=== PATIENT | female | born 1960 | race Caucasian/White ===

== ENCOUNTER → 2016-08-21 | Outpatient (CLI) | payer OTHER ==
[~2016-08-21] MED LIST: TRAM50TA2 PO
--- OUTSIDE RECORDS SUMMARY | 2016-08-21 09:32 | XMS REPORT | Clinical Summary ---
Author Author User, [employer] Organization Formerly [facility] [place] Address Unknown Phone Unavailable Allergies, Adverse Reactions, Alerts Allergy Name Reaction Description Start Date Severity Status Provider SULFA Critical Active Kiarra Chinchilla Conditions or Problems Problem Name Problem Code Onset Date Status Entry Date Provider Comment Standard Description Annotate FEVER 780.6 Resolved Kiarra Chinchilla Fever and other physiologic disturbances of temperature regulation TACHYCARDIA 785.0 Resolved Kiarra Chinchilla Tachycardia, unspecified MUSCLE PAIN 729.1 Resolved Kiarra Chinchilla Myalgia and myositis, unspecified COUGH 786.2 Resolved Kiarra Chinchilla Cough ADENOCARCINOMA, COLON, FAMILY HX V16.0 Active Kiarra Chinchilla Family history of malignant neoplasm of gastrointestinal tract ELEVATED BLOOD PRESSURE WITHOUT DIAGNOSIS OF HYPERTENSION 796.2 Resolved Kiarra Chinchilla Elevated blood pressure reading without diagnosis of hypertension IRRITABLE BOWEL SYNDROME 564.1 Active Kiarra Chinchilla Irritable bowel syndrome FOOT PAIN, RIGHT 729.5 Resolved Kiarra Chinchilla Pain in limb WELL WOMAN V70.0 Resolved Kiarra Chinchilla Routine general medical examination at a health care facility HYPERCHOLESTEROLEMIA 272.0 Active Kiarra Chinchilla Pure hypercholesterolemia INSOMNIA 780.52 Resolved Kiarra Chinchilla Insomnia, unspecified LIVER FUNCTION TESTS, ABNORMAL 794.8 Resolved Kiarra Chinchilla Nonspecific abnormal results of function study of liver BACK PAIN 724.5 Resolved Kiarra Chinchilla Backache, unspecified LABYRINTHITIS NOS 386.30 Resolved Kiarra Chinchilla Labyrinthitis, unspecified CHEST PAIN, ATYPICAL 786.59 Resolved Kiarra Chinchilla Other chest pain FEVER 780.6 Resolved Kiarra Chinchilla Fever and other physiologic disturbances of temperature regulation CLOSTRIDIUM DIFFICILE COLITIS 008.45 Resolved Kiarra Chinchilla Intestinal infection due to clostridium difficile FOOT PAIN, RIGHT 729.5 Resolved Kiarra Chinchilla Pain in limb MENOPAUSAL SYNDROME 627.0 Resolved Kiarra Chinchilla Premenopausal menorrhagia ARM PAIN, LEFT 729.5 Resolved Kiarra Chinchilla Pain in limb SEBORRHEIC KERATOSIS 702.19 Resolved Kiarra Chinchilla Other seborrheic keratosis DEHYDRATION 276.51 Resolved Kiarra Chinchilla Dehydration MENOPAUSAL SYNDROME 627.0 Active Kiarra Chinchilla Premenopausal menorrhagia SCIATICA/HERNIATED DISC 722.10 Resolved Kiarra Chinchilla Displacement of lumbar intervertebral disc without myelopathy CELLULITIS 682.9 Resolved Kiarra Chinchilla Cellulitis and abscess of unspecified sites ACUTE SPHENOIDAL SINUSITIS 461.3 Resolved Kiarra Chinchilla Acute sphenoidal sinusitis FATIGUE 780.79 Resolved Kiarra Chinchilla Other malaise and fatigue HIDRADENITIS SUPPURATIVA 705.83 Active Kiarra Chinchilla Hidradenitis BRONCHITIS 490 Inactive Kiarra Chinchilla Bronchitis, not specified as acute or chronic HEALTH SCREENING V70.0 Resolved Kiarra Chinchilla Routine general medical examination at a health care facility ANKLE SPRAIN 845.00 Resolved Kiarra Chinchilla Unspecified site of ankle sprain 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 Kiarra Chinchilla Injury to peroneal nerve KERATOSIS, SEBORRHEIC, INFLAMED 702.11 Active Kiarra Chinchilla Inflamed seborrheic keratosis Medication List Medication Instructions Start Date Stop Date Generic Name NDC Status Provider Patient Instruction NAPROXEN 500 MG TAB 1 PO BID NAPROXEN 79486637683 Active Lenora Adam NAPROXEN 500 MG TAB 1 PO BID NAPROXEN 37301873293 No Longer Active Kiarra Chinchilla LYRICA 25 MG CAPS 1 PO BID PREGABALIN 57157853840 No Longer Active Kiarra Chinchilla ALPRAZOLAM 1 MG TAB 1/2 PO QHS ALPRAZOLAM 07991354847 Active Kiarra Chinchilla LINZESS 145 MCG CAPS 1 PO daily LINACLOTIDE 06690940413 Active Kiarra Chinchilla CLINDAGEL 1 % GEL apply to affected areas BID CLINDAMYCIN PHOSPHATE 72589526326 No Longer Active Kiarra Chinchilla SPIRONOLACTONE 25 MG TAB 2 PO BID SPIRONOLACTONE 63621289591 No Longer Active Kiarra Chinchilla LORTAB 5 5-500 MG TABS 1 to 2 PO Q6hrs prn ACETAMINOPHEN-HYDROCODONE 46856975167 No Longer Active Kiarra Chinchilla CELEXA 20 MG TABS 1 PO daily CITALOPRAM HYDROBROMIDE 35592480783 No Longer Active Kiarra Aurelia Chinchilla ALPRAZOLAM 1 MG TAB 1/2 to 1 po qhs prn ALPRAZOLAM 28800895484 No Longer Active Kiarra Aurelia Chinchilla AMITIZA 24 MCG CAPS 1 PO BID LUBIPROSTONE 93388685742 No Longer Active Kiarra Aurelia Chinchilla BENTYL 20 MG TABS 1 po QID prn stomach cramps DICYCLOMINE HCL 04508283097 Active Gissell Mcqueeng ROBITUSSIN A-C 10-100 MG/5ML SYRUP 1 teaspoon PO Q 4-6 hr prn ROBITUSSIN A-C 10-100 MG/5ML SYRUP No Longer Active Kiarra Aurelia Chinchilla PROAIR HFA 108 (90 BASE) MCG/ACT AERS 2 puff Q4 hrs prn wheezing ALBUTEROL SULFATE 29796899273 No Longer Active Kiarra Aurelia Chinchilla ADVAIR DISKUS 100-50 MCG/DOSE MISC 1 puff BID FLUTICASONE-SALMETEROL 52278931276 No Longer Active Kiarrajay Chinchilla PREDNISONE 20 MG TAB 1 PO daily for 7 days PREDNISONE 43397474644 No Longer Active Kiarrajay Chinchilla BIAXIN 500 MG TAB 1 PO BID CLARITHROMYCIN 17287984951 No Longer Active Kiarra Aurelia Chinchilla SUDAFED 30 MG TAB 1 PO TID prn PSEUDOEPHEDRINE HCL 65420036180 No Longer Active Kiarra Aurelia Chinchilla AUGMENTIN 500-125 MG TAB 1 PO BID AMOXICILLIN-POT CLAVULANATE 29347634675 No Longer Active Kiarra Aurelia Chinchilla PREDNISONE 20 MG TAB 2 pills at once for 2 days then 1 pill daily for 2 days PREDNISONE 77313404784 No Longer Active Kiarra Aurelia SMALLS'S NASAL SPRAY (DEXAMETHASONE, GENTAMICIN, SALINE) 2 puffs each nostril TID for [address] GALINDO NASAL SPRAY ( DEXAMETHASONE, GENTAMICIN, SALINE) No Longer Active Kiarra Chinchilla KEFLEX 500 MG CAP 1 PO TID for 7 days CEPHALEXIN 58798731332 No Longer Active Kiarra Aurelia Chinchilla IBUPROFEN 600 MG TAB 1 PO TID for 7 days IBUPROFEN 02660181752 No Longer Active Kiarra Aurelia Chinchilla KEFLEX 500 MG CAP 1 PO TID for 7 days CEPHALEXIN 79835517813 No Longer Active Kiarra Chinchilla KEFLEX 500 MG CAP 1 PO TID for 7 days CEPHALEXIN 09015247997 No Longer Active Kiarra SMALLS'Carisa NASAL SPRAY (DEXAMETHASONE, GENTAMICIN, SALINE) 2 puffs each nostril TID for [address] GALINDO NASAL SPRAY ( DEXAMETHASONE, GENTAMICIN, SALINE) No Longer Active Kiarra Chinchilla AUGMENTIN 500-125 MG TAB 1 PO BID AMOXICILLIN-POT CLAVULANATE 15702386184 No Longer Active Kiarrajay Chinchilla KEFLEX 500 MG CAP 1 PO TID for 7 days CEPHALEXIN 81918585958 No Longer Active Kiarra Chinchilla AMBIEN 10 MG TAB 1 prn ZOLPIDEM TARTRATE 78878987656 No Longer Active Lenora Adam LORTAB 5 5-500 MG TABS 1 to 2 PO Q6hrs prn ACETAMINOPHEN-HYDROCODONE 77454402380 No Longer Active Kiarrajay Chinchilla MOBIC 7.5 MG TABS 1 PO BID for 2 weeks MELOXICAM 81099140286 No Longer Active Kiarra Chinchilla ALPRAZOLAM 1 MG TABS 1/2 po HS prn ALPRAZOLAM 85926243860 No Longer Active Kiarra Aurelia Chinchilla AMBIEN 10 MG TAB 1 po prn ZOLPIDEM TARTRATE 79764258727 No Longer Active Kiarra Aurelia Chinchilla DOXEPIN HCL 10 MG CAPS 1 PO BID prn DOXEPIN HCL 35653867435 No Longer Active Kiarra Aurelia Chinchilla ZELNORM 6 MG TABS 1 PO Q12hrs prn TEGASEROD MALEATE 21094570377 No Longer Active Kiarra Aurelia Chinchilla AUGMENTIN 500-125 MG TABS 1 PO BID AMOXICILLIN-POT CLAVULANATE 85950056623 No Longer Active Kiarra Aurelia Chinchilla FLAGYL 500 MG TAB 1 PO TID for 10 days METRONIDAZOLE 93311107317 No Longer Active Kiarra Aurelia Chinchilla QUESTRAN PACK 1 packet in 1/2 OJ TID x 10 days CHOLESTYRAMINE PACK 03561450661 No Longer Active Kiarra Aurelia Chinchilla AMBIEN 10 MG TAB 1 po prn ZOLPIDEM TARTRATE 77339993994 No Longer Active Kiarra Aurelia Chinchilla PREDNISONE 20 MG TAB 2 daily for 3 days PREDNISONE 01272954253 No Longer Active Kiarra Aurelia Chinchilla ROBITUSSIN A-C 10-100 MG/5ML SYRUP 5cc PO Q 4-6 hr prn ROBITUSSIN A-C 10-100 MG/5ML SYRUP 08112369322 No Longer Active Kiarra Aurelia Chinchilla AUGMENTIN 500-125 MG TAB 1 PO BID AMOXICILLIN-POT CLAVULANATE 16011387647 No Longer Active Kiarra Aureila Chinchilla Vital Signs Date Name Value Unit Range Description blood pressure, diastolic - 8462-4 80 mm[Hg] BP qureshi blood pressure, systolic - 8480-6 140 mm[Hg] BP sys pulse rate E&M - 8867-4 84 /min Heart rate respiratory rate E&M - 9279-1 14 /min Resp rate blood pressure, diastolic - 8462-4 90 mm[Hg] BP qureshi blood pressure, systolic - 8480-6 122 mm[Hg] BP sys pulse rate E&M - 8867-4 85 /min Heart rate respiratory rate E&M - 9279-1 14 /min Resp rate weight E&M - 3141-9 215 [lb_av] Weight Measured blood pressure, diastolic - 8462-4 90 mm[Hg] BP qureshi blood pressure, systolic - 8480-6 128 mm[Hg] BP sys pulse rate E&M - 8867-4 80 /min Heart rate respiratory rate E&M - 9279-1 14 /min Resp rate temperature E&M 97.3 [degF] Body temperature weight E&M - 3141-9 215 [lb_av] Weight Measured blood pressure, diastolic - 8462-4 84 mm[Hg] BP qureshi blood pressure, systolic - 8480-6 130 mm[Hg] BP sys pulse rate E&M - 8867-4 80 /min Heart rate respiratory rate E&M - 9279-1 14 /min Resp rate temperature E&M 97.7 [degF] Body temperature weight E&M - 3141-9 205 [lb_av] Weight Measured blood pressure, diastolic - 8462-4 88 mm[Hg] BP qureshi blood pressure, systolic - 8480-6 130 mm[Hg] BP sys pulse rate E&M - 8867-4 84 /min Heart rate respiratory rate E&M - 9279-1 14 /min Resp rate weight E&M - 3141-9 205 [lb_av] Weight Measured Encounters Code Encounter Date Provider Facility CPT-12016 Ofc Vst, Est Level IV 17:28:16 [employer] Kiarra Aureliaantwan Chinchilla, DO, FACP CPT-29674 Ofc Vst, Est Level III 16:40:49 CDT Kiarra Aurelia Chinchilla DO, FACP CPT-07215 Ofc Vst, Est Level III 16:29:23 CDT Kiarra Aurelia [facility] CPT-00829 Ofc Vst, Est Level III 16:46:19 CDT Kiarra Aureliaantwan Chinchilla DO, FACP CPT-96512 Ofc Vst, Est Level III 15:07:43 CDT Kiarrajay Chinchilla, DO, FACP CPT-71869 Ofc Vst, Est Level III 13:39:54 CDT Kiarra Aurelia Amor Chinchilla DO, FACP CPT-31495 Ofc Vst, Est Level III 09:58:01 CDT Kiarra Aureliaantwan Chinchilla [facility] CPT-76395 Ofc Vst, Est Level III 13:31:56 CDT Kiarrajay Chinchilla, DO, FACP CPT-73806 Ofc Vst, Est Level IV 13:56:54 [employer] Kiarrajay Chinchilla, DO, FACP CPT-96057 Ofc Vst, Est Level III 14:36:46 CDT Kiarrajay Chinchilla, DO, FACP CPT-78376 Ofc Vst, Est Level IV 15:30:48 CDT Kiarrajay Chinchilla, DO, FACP CPT-00197 Ofc Vst, Est Level III 10:53:33 CDT Kiarrajay Chinchilla, DO, FACP CPT-67676 Ofc Vst, Est Level IV 16:16:00 CDT Kiarrajay Chinchilla [facility] CPT-43898 Ofc Vst, Est Level III 14:08:33 CDT Kiarra Aurelia Younger mAor, DO, FACP CPT-69055 Ofc Vst, Est Level III 09:51:56 [employer] Kiarrajay Guerreroi Carisa Amor, DO, FACP CPT-00250 Ofc Vst, Est Level IV 11:36:05 [employer] Kiarrajay Younger Amor, DO, FACP CPT-50973 Ofc Vst, Est Level III 11:13:16 CDT Kiarrajay Guerreroi Carisa Amor, DO, FACP CPT-41379 Ofc Vst, Est Level III 16:41:47 [employer] Kiarra Aurelia Peresner Kiarra Carisa Amor, DO, FACP CPT-99825 Ofc Vst, Est Level IV 14:44:53 CDT Kiarra Aurelia Younger Amor, DO, FACP CPT-76000 Ofc Vst, Est Level III 10:14:38 CDT Kiarra Aurelia Guerrerojay Chinchilla, DO, FACP CPT-60481 Ofc Vst, Est Level III 15:52:07 CDT Kiarrajay Peresmanuel Chinchilla, DO, FACP CPT-52720 Ofc Vst, Est Level IV 15:39:54 CDT Kiarrajay Chinchilla [facility] [place] CPT-46207 Ofc Vst, Est Level III 16:06:34 [employer] Kiarra Chinchilla [facility] [place] CPT-64017 Ofc Vst, Est Level III 10:10:31 CDT Kiarra Chinchilla [facility] [place] CPT-40615 Ofc Vst, New Level III 13:16:04 [employer] Kiarra Chinchilla [facility] [place] Procedures Code Procedure Name Date Entry Date Standard Description CPT-37132 Preventive, Est, (40-64) 16:50:36 CDT CPT-08718 Preventive, Est, (40-64) 14:40:56 CDT CPT-26353 Excision of Benign Lesion 2.1-3.0 cm 19:02:14 CDT 12/02 CPT-92931 EKG w/ Interpretation 14:44:53 CDT
--- NOTE | 2016-08-21 10:05 | Diagnostic Imaging Report ---
Clinical indication: Patient with acute right distal deep peripheral motor neuropathy. Patient complains of pain in the right lateral malleolus with numbness, burning, and tingling sensation radiating to plantar surface of the right foot. Exam: X-ray of the right ankle, AP and lateral views. Comparison: X-ray of the right ankle dated 12/31/2013. Findings: There is no acute fracture or dislocation. Stable small chronic calcification seen distal to the lateral malleolus. Stable spurring of the inferior aspect of the medial malleolus. There is stable hypertrophic spurring of the dorsal midfoot. There is stable hypertrophic calcaneal spurring at the plantar and Achilles attachments. The ankle mortise and syndesmotic joints are unremarkable. Impression: 1: Stable x-ray of the right ankle with no interval acute fracture or dislocation. 2: Degenerative disease of the right ankle and foot. Dictated by: Dictated on workstation # [id number]
== END ==
LOC: RAD 09:27
PROVIDERS: ATTEND Neuromusculoskeletal Medicine, Sports Medicine
DX: Z02.71 Encounter for disability determination (principal)
CPT/HCPCS: 73600

== ENCOUNTER → 2018-07-03 | Outpatient (CLI) | payer MEDICARE, OTHER ==
--- NOTE | 2018-07-03 14:21 | Diagnostic Imaging Report ---
PROCEDURE: CT head without contrast. TECHNIQUE: Multiple contiguous axial images were obtained through the brain without the use of intravenous contrast. INDICATION: Right mastoid pressure and headache. COMPARISON: No prior studies are available for comparison. FINDINGS: The ventricles and sulci are within normal limits. No sulcal effacement, midline shift or hemorrhage is detected. Cisterns are patent. Mastoid air cells as well as the visualized paranasal sinuses are clear. IMPRESSION: No acute intracranial process is detected. Dictated by: Dictated on workstation # [id number]
== END ==
LOC: RAD 13:39
PROVIDERS: ATTEND Family Medicine
DX: J32.9 Chronic sinusitis, unspecified (principal); R51 Headache
CPT/HCPCS: 70450

== ENCOUNTER → 2021-08-28 | Outpatient (CLI) | payer MEDICARE | LOC: CARD 12:00 | PROVIDERS: ATTEND Family Medicine | DX: I44.7 Left bundle-branch block, unspecified (principal); I49.9 Cardiac arrhythmia, unspecified | CPT/HCPCS: 93005 ==

== ENCOUNTER → 2021-09-28 | Outpatient (CLI) | payer MEDICARE ==
[~2021-09-28] MED LIST changes: +CATHETER FLUSH 10 ML SYR IVP PRN; +REGADENOSON 0.4 MG/5 ML SYR (LEXISCAN) IV ONE
[2021-09-28 12:26] VITALS: BP 170/88
--- NOTE | 2021-09-29 08:21 | NUCLEAR STRESS TEST ---
REGADENOSON NUCLEAR STRESS Date of procedure: 09/28/2021. Primary care provider: Praveen Justin MD Admitting physician: Felix Cooper Jr., MD. INDICATION: Left bundle branch block. BASELINE ELECTROCARDIOGRAM: Sinus rhythm with left bundle branch block. STRESS TEST PROCEDURE: The patient was administered 0.4 mg of intravenous Regadenoson. The resting heart rate was 71 bpm and the peak heart rate was 113 bpm. The resting blood pressure was 170/88 mmHg and the minimum blood pressure was 170/88 mmHg. This represents a normal heart rate and a blunted blood pressure response to Regadenoson with resting hypertension. The test was stopped due to the protocol. There was no chest discomfort during the test. There were no arrhythmias during the test. The stress electrocardiogram was indeterminate due to the left bundle branch block. NUCLEAR PROCEDURE: The patient was administered 10.6 mCi of intravenous technetium 99m Tetrofosmin at rest for the rest images. The patient was subsequ ently administered 31.6 mCi of intravenous technetium 99m Tetrofosmin at peak stress for the stress images. Following an appropriate wait after each injection, imaging was obtained. The images were subsequently processed and reformatted in the usual views. Gated imaging was obtained. The image quality was adequate with a mild degree of gastrointestinal and breast attenuation ar tifact. CT attenuation correction was used as a adjunct to standard imaging. Both the corrected and uncorrected images were reviewed for interpretation. NUCLEAR RESULTS: There was a large, moderate intensity, reversible mid to distal anterior and apical defect with a large amount of inducible ischemia with a summed stress score of 22 and a summed difference score of 21. There was normal left ventricular chamber size with an end-diastolic volume of 77 mL and an end- systolic volume of 34 mL. There was no evidence of transient ischemic dilatation. The TID ratio was 1.24. There was normal wall motion in all segments with a calculated ejection fraction of 56%. IMPRESSION: 1. Normal heart rate and a blunted blood pressure response to regadenoson with resting hypertension. 2. There was no chest discomfort or arrhythmias during the test. 3. The stress electrocardiogram was indeterminate due to the left bundle branch block. 4. There was a large, moderate intensity, reversible mid to distal anterior and apical defect with a large amount of inducible ischemia with a summed stress score of 22 and a summed difference score of 21. 5. There was normal wall motion in all segments with a calculated ejection fraction of 56%. 6. This is an abnormal result representing an overall high risk for possible future coronary ischemic events. Certain portions of this document may have been dictated utilizing voice recognition technology. Inherent to this technology, typographical and grammatical errors may exist. As much as I am diligent to identify and correct these mistakes, some errors may remain in the document. FELIX COOPER JR, MD Sep 29, 2021 08:21
== END ==
LOC: CARD 10:38
PROVIDERS: ATTEND Internal Medicine Cardiovascular Disease
DX: I44.7 Left bundle-branch block, unspecified (principal); I51.9 Heart disease, unspecified
CPT/HCPCS: 78452; 93017; 93306; A9502

== ENCOUNTER 2021-10-19 09:00 | Day surgery (SDC) | payer MEDICARE ==
[~2021-10-19] VITALS: Ht 170.2 cm; Wt 99.3 kg
[2021-10-19] VITALS (11 sets, daily range): BP systolic 103–130; BP diastolic 58–86
[~2021-10-19 09:00] MED LIST changes: +ALPR1TAB7 PO; +ASPI-1238 PO; +ASPIRIN 81 MG CHEW (CHILDREN'S ASA) ONE; +ASPIRIN 81 MG CHEW (CHILDREN'S ASA) PO ONE; +CATHETER FLUSH 10 ML SYR IV PRN; -CATHETER FLUSH 10 ML SYR IVP PRN; +FLUT9.9S NS; +HEParin (CATH LAB) 2,000 ML IV ONE; +HEParin 1000 UNIT/ML (10ML VIAL) FOR BOLUS ONE; +LIDOCAINE 1% INJ 50 ML (XYLOCAINE) VIAL ONE; +LINA72CA PO; +METO50TA7 PO; +MIDAZOLAM 5 MG/5 ML (VERSED) VIAL ONE; +NAPR-1071 PO; +NITRO DRIP 25000 MCG/D5W 250 ML IV ONE; +NS IV 1000 ML 1,000 ML IV ONE; +NS IV 1000 ML 1,000 ML ONE; -REGADENOSON 0.4 MG/5 ML SYR (LEXISCAN) IV ONE; +TIZA4CAP8 PO; +VERAPAMIL 5 MG/2 ML (CALAN) VIAL IV ONE; +fentaNYL INJ 100 MCG/2 ML AMP ONE
--- NOTE | 2021-10-19 09:00 | Pre-Op Note & Conscious Sedat ---
Pre-Operative Progress Note H&P Reviewed The H&P was reviewed, patient examined and no changes noted. Date H&P Reviewed: Oct 19, 2021 Time H&P Reviewed: 09:00 Pre-Op Diagnosis: Chest pain and abnormal stress test Conscious Sedation Pre-Proced ASA Score 2 For ASA 3 and 4: Consider anesthesia and medical clearance. Also, for patients with a history of failed moderate sedation consider anesthesia. Airway Lungs Heart ASA score ASA 1: a normal healthy patient ASA 2: a patient with a mild systemic disease (mid diabetes, controlled hypertension, obesity ASA 3: a patient with a severe systemic disease that limits activity (angina, COPD, prior Myocardial infarction) ASA 4: a patient with an incapacitating disease that is a constant threat to life (CHF, renal failure) ASA 5: a moribund patient not expected to survive 24 hrs. (ruptured aneurysm) ASA 6: a declared brain- patient whose organs are being harvested. For emergent operations, add the letter E after the classification Mallampati Classification Grade 2 Sedation Plan Analgesia, Amnesia, Plan communicated to team members, Discussed options with patient/fam, Discussed risks with patient/fam The patient is an appropriate candidate to undergo the planned procedure, sedation, and anesthesia. The patient immediately re-assessed prior to indication. THAD PEREIRA JR, MD Oct 19, 2021 09:00
--- NOTE | 2021-10-19 10:16 | Cardiac Cath Report ---
CARDIAC CATHETERIZATION DATE OF PROCEDURE: 10/19/2021 INDICATION: Chest pain and abnormal nuclear stress test. HISTORY: The patient is a 61 year old female with no previously known history of coronary artery disease who is recently found to have a left bundle branch block. She was also having some intermittent chest discomfort with and without exertion. I had her undergo a nuclear stress test on 09/28/2021 that showed a large, reversible mid to distal anterior and apical defect with a large amount of inducible ischemia. She was started on beta-manolo and her symptoms have started to improve. However, in light of the severely abnormal stress test, she is now referred for further evaluation with a cardiac catheterization. PROCEDURES PERFORMED: 1. Left heart catheterization with hemodynamic measurements. 2. Diagnostic [place] coronary angiography. PROCEDURE DESCRIPTION: After informed consent and in the fasting state, left heart catheterization was performed through the right radial artery utilizing a 6 Welsh system by percutaneous approach. Standard 5 Welsh Salma catheters were utilized for the diagnostic portion of the procedure. All catheters were exchanged over a guidewire. Following the procedure, a vascular band was applied to the radial artery access site and the sheath was removed with good hemostasis. RESULTS: HEMODYNAMICS: Aortic pressure was 95/57 mmHg. The left ventricular pressure was 100/0 mmHg with a left ventricular end-diastolic pressure of 4 mmHg. There was no significant pressure gradient upon pullback across the aortic valve. CORONARY ANGIOGRAPHY: Left main coronary artery: Free of significant disease. Left anterior descending coronary artery: Free of significant disease. Left circumflex coronary artery: Codominant and free of significant disease. Right coronary artery: Codominant and free of significant disease. There was some catheter induced spasm in the proximal vessel which resolved with intracoronary nitroglycerin. IMPRESSION: 1. Normal left heart pressures. 2. Angiographically normal-appearing coronary arteries in a codominant system. However, there was some catheter induced spasm in the proximal right coronary artery that resolved with intracoronary nitroglycerin. 3. The patient is known to have normal left ventricular systolic function with a calculated ejection fraction of 56% by nuclear stress test performed on 10/29/2021. 4. The patient most likely had a false positive stress test possibly due to the left bundle branch block. Certain portions of this document may have been dictated utilizing voice recognition technology. Inherent to this technology, typographical and grammatical errors may exist. As much as I am diligent to identify and correct these mistakes, some errors may remain in the document. THAD PEREIRA JR, MD Oct 19, 2021 10:16
[2021-10-19] MEDS ORDERED: NS IV 1000 ML 1,000 ML IV SCH (10:30)
== END 2021-10-19 13:20 ==
LOC: CATH 09:00 → SDC 10:35 → CATH 13:20
PROVIDERS: ATTEND Internal Medicine Cardiovascular Disease
DX: R07.9 Chest pain, unspecified (principal); R94.39 Abnormal result of other cardiovascular function study; E11.42 Type 2 diabetes mellitus with diabetic polyneuropathy; E66.9 Obesity, unspecified; I44.7 Left bundle-branch block, unspecified; E78.2 Mixed hyperlipidemia; R03.0 Elevated blood-pressure reading, without diagnosis of hypertension; Z68.34 Body mass index [BMI] 34.0-34.9, adult; F17.210 Nicotine dependence, cigarettes, uncomplicated
CPT/HCPCS: 93458; C1760; C1894